=== PATIENT | male | born 1975 | race Caucasian/White ===

== ENCOUNTER 2021-07-09 15:23 | Outpatient (CLI) | payer OTHER, SELFPAY ==
--- NOTE | 2021-07-09 15:36 | XRR_ITS ---
PROCEDURE INFORMATION: Exam: XR Left Hip Exam date and time: 07/09/2021 3:36 PM Age: 45 years old Clinical indication: Hip pain; Left hip; Patient HX: PT in lt hip unknown injury. 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 Views: 2 or 3 views hip with pelvis when performed. COMPARISON: No relevant prior studies available. FINDINGS: Bones/joints: Unremarkable. No acute fracture. Soft tissues: Unremarkable. XR/XR hip LT 2-3V wo/w pel* [id number] IMPRESSION: No acute findings.
[2021-07-09 16:28] LABS: Alanine Aminotransferase 18 U/L (0-41); Albumin Level 4.6 g/dL (3.5-5.2); Alkaline Phosphatase 90 IU/L (40-130); Anion Gap 12.4 (5-19); Aspartate Amino Transferase 12 U/L (0-40); Blood Urea Nitrogen 18 mg/dL (6-20); Calcium 9.6 mg/dL (8.5-10.5); Carbon Dioxide 27 mmol/L (22-29); Chloride 102 mmol/L (98-107); Chol HDL Ratio 5.43 mg/dL (1.0-5.00); Cholesterol 228 mg/dL (0-200); Globulin 2.7 g/dL (1.3-4.6); Glomerular Filtration Rate 103.6 mL/min (90-130); Glucose 97 mg/dL (65-115); HDL Cholesterol 42 mg/dL (60-100); LDL Cholesterol Calculated 154 mg/dL (50-129); LDL HDL Ratio 3.67 RATIO (0.00-3.22); Osmolality Calculated 286 mOsm/kg (285-295); Potassium 4.4 mmol/L (3.5-5.1); Sodium 137 mmol/L (136-145); Total Bilirubin 0.8 mg/dL (0.15-1.2); Total Protein 7.3 g/dL (6.6-8.7); Triglycerides 162 mg/dL (0-150)
== END 2021-07-09 15:24 | disposition home or self-care (01) ==
LOC: RAD 15:31
PROVIDERS: PCP Nurse Practitioner Family; Visit Provider Nurse Practitioner Family
DX: M25.552 Pain in left hip (principal); I10 Essential (primary) hypertension; E78.5 Hyperlipidemia, unspecified
CPT/HCPCS: 36415; 73502; 80053; 80061

== ENCOUNTER 2021-07-14 15:04 | Outpatient (CLI) | payer OTHER, SELFPAY ==
--- NOTE | 2021-07-14 15:11 | XR_ITS ---
WS: [id number] Exam: XR lumbar spine 2-3V* [id number] Date/Time of Exam: 07/14/2021 3:25 PM Reason For Exam: M54.5 - Low back pain No fracture or dislocation. Disc spaces are preserved. Mild spondylosis. Posterior elements are intac t. Numerous faceted calcified densities superimpose the left abdomen. Partial sacralization of L5. XR/XR lumbar spine 2-3V* [id number] IMPRESSION: 1. No fracture or dislocation. Minimal degenerative change. 2. Numerous faceted calcifications visualized over the left abdomen. Significan ce is undetermined. These could be renal stones or material within the GI tract .
== END 2021-07-14 15:05 | disposition home or self-care (01) ==
PROVIDERS: PCP Nurse Practitioner Family; Visit Provider Nurse Practitioner Family
DX: M54.5 Low back pain (principal)
CPT/HCPCS: 72100

== ENCOUNTER 2021-07-14 20:43 | Emergency (ER) | payer OTHER, SELFPAY ==
[2021-07-14 20:53] VITALS: PULSE 129; RESP 24; TEMP 36.7; O2SAT 99; BMI 28.8
--- NOTE | 2021-07-14 20:58 | XRR_ITS ---
PROCEDURE INFORMATION: Exam: XR Chest Exam date and time: 07/14/2021 8:58 PM Age: 45 years old Clinical indication: Dyspnea TECHNIQUE: Imaging protocol: XR of the chest. Views: 1 view. COMPARISON: No relevant prior studies available. FINDINGS: Lungs: Lungs are clear. Pleural spaces: There is no pleural effusion or pneumothorax. Heart/Mediastinum: Cardiomediastinal contours are unremarkable. Bones/joints: Bones are unremarkable. XR/XR chest 1V portable [id number] IMPRESSION: No acute findings.
--- NOTE | 2021-07-14 20:59 | ECG_ITS ---
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 Measurements Intervals [place] Rate: 121 P: 62 CO: 159 QRS: 56 QRSD: 111 T: 51 QT: 344 QTc: 490 Interpretive Statements SINUS TACHYCARDIA INCOMPLETE RIGHT BUNDLE BRANCH BLOCK [90+ ms QRS DURATION, TERMINAL R IN V1/V2, 40+ ms S IN I/aVL/V4/V5/V6] ABNORMAL RHYTHM ECG No previous ECG available for comparison Electronically Signed On 07-14-2021 22:07:12 CDT by Mayo Lacy M.D. [id number]
[2021-07-14] MEDS: sodium chloride 0.9% 500 ML IV (21:15)
[2021-07-14] MEDS: sodium chloride 0.9% 1,000 ML 999 ML IV (21:15)
[2021-07-14] MEDS: metoprolol tartrate 1 mg/1 mL SDV 5 mL 5 MG IVP (21:15)
[2021-07-14 21:29] LABS: Basophils % 0.4 %; Eosinophils # 0.1 10^3/uL (0.0-0.8); Eosinophils % 0.6 %; Hematocrit 45.1 % (42.0-52.0); Hemoglobin 15.7 g/dL (11.7-16.6); Lymphocytes # 1.5 10^3/uL (0.8-4.8); Lymphocytes % 15.3 %; Mean Corpuscular HGB Conc 34.8 g/dL (30.0-36.0); Mean Corpuscular Volume 86.1 fl (80-94); Mean Platelet Volume 12.1 fL (7.4-10.4); Monocytes # 0.9 10^3/uL (0.2-0.9); Monocytes % 8.7 %; Neutrophils # 7.53 10^3/uL (1.8-7.7); Neutrophils % 74.7 %; Nucleated Red Blood Cells % 0 %; Platelet Count 208 10^3/cmm (130-400); Red Blood Count 5.24 10^6/uL (4.1-5.3); Red Cell Distribution Width 11.7 % (12.1-15.1); White Blood Count 10.1 10^3/uL (4.0-10.0)
[2021-07-14 22:00] LABS: D Dimer <= 0.27 ug/mIFEU (0-0.59)
--- NOTE | 2021-07-14 22:02 | ED_ITS ---
HPI - General Adult General: Chief complaint: Chest Pain Stated complaint: Heart palpatations Time Seen by Provider: 07/14/21 21:06 History of Present Illness: HPI narrative: Patient is a 45-year-old male with a history of tachycardia who was previously on atenolol currently not on any medication who presents the emergency room for concerns of palpitation which started 2 hours ago. Per patient's daughter, patient was concerned that he may have hyperkalemia given this tachycardia was told to go to the emergency room for evaluation. Patient had mild chest pain shortness of breath associated with the palpitation. Denies any lightheadedness, abdominal complaints complaints dehydration, nausea/vomiting, diarrhea, melena hematochezia. Patient has no complaints at this time. No family history of cardiac disease. Denies any pleuritic chest pain, denies any recent alcohol withdrawal history, any sympathomimetic use, smoking, or family history of CAD or sudden cardiac . Onset: 3 hrs ago Duration:3 hrs Location:home Severity:moderate Review of Systems Narrative: Constitutional: No fever, no chills. HEENT: No vision changes CV: +mild chest pain/SOB, +palpitations PULM: no cough, no dyspnea. GI: No abdominal pain, no N/V/D. : No dysuria MSKEL: No muscle pain SKIN: No new rashes, no lesions. NEURO: No headache, no focal weakness. HEME: No visible bruises PSYCH: Normal mood [facility] ED PFSH: Medical History Anxiety HTN (hypertension) Family History Father Hypertension Physical Exam Narrative: EXAM NARRATIVE: Head: Atraumatic Eyes: PERRL, conjunctiva without injection ENT: Mucous membrane moist NECK: Supple, ROM intact LUNGS: LCTAB, no crackles/rhonchi CV: Sinus tachycardia, 2+ radial pulses b/l ABDOMEN: Soft, nontender in all quadrants EXTREMITY: Normal ROM SKIN: No rash or erythema NEURO: Awake and alert, no focal motor deficits PSYCH: Normal mood and affect Course Vital Signs: Vital signs: Vital Signs Temperature 98.1 F 07/14/21 20:53 Pulse Rate 83 07/15/21 00:29 Respiratory Rate 18 07/15/21 00:29 Blood Pressure 150/96 07/15/21 00:29 Pulse Oximetry 97 07/15/21 00:29 MDM - General Adult MDM Narrative: Medical decision making narrative: 35-year-old male who presents the emergency room for acute onset of palpitation with some chest pain shortness of breath. On exam, patient is noted be tachycardic to the 110s to 120s. Rest of exam within normal limit. Given findings, will work-up for ACS. Low suspicion for PE but will evaluate given tachycardia. EKG showing regular sinus tachycardia at HT of [129]. Normal axis. No ST elevations/depressions to suggest coronary occlusion. Normal CT, QRS, QT intervals. On reassessment, he received 1.5 L of fluid and 5 mg of metoprolol. Patient has been persistently with heart rate in the 80s. There is NO lethal dysrhythmia on the secured entrance monitor. Troponin X2 within normal limit. D dimer wnl. I have given patient follow-up with ski edge painter outpatient however patient declined this time citing desire to follow-up with his primary care provider. Again there is no family member with list of lethal dysrhythmia do not suspect that the patient will have any significant problem once leaving the hospital today. I have instructed patient that should he have any palpitation or having any similar symptoms to follow-up with a ski edge painter for Holter monitor. Patient verbalized understanding and agrees to do so. Doubt ACS/PE or other emergent causes of chest pain. No suspicion for aortic dissection given no widened mediastinum, 2+ upper extremity pulses, or tearing pain. No suspicion for PE given no pleuritic chest pain, recent immobilization or surgery hemoptysis, or other VTE risk factors. EKG is non-ischemic. XR normal. Disposition: Discharge. Patient counseled regarding diagnostic impression, treatment plan. Patient given ED strict return precautions to return for continuation, worsening, or development of new symptoms. Instructed to f/u w/ PCP regarding symptoms today. Patient verbalized understanding. Lab Data: Labs: Lab Results 07/14/21 07/14/21 07/14/21 21:23 21:23 21:23 WBC 10.1 10^3/uL H 10 ^3/uL (4.0-10.0) RBC 5.24 10^6/uL 10^6 /uL (4.1-5.3) Hgb 15.7 g/dL g/dL (11.7-16.6) Hct 45.1 % % (42.0-52.0) MCV 86.1 fl fl (80-94) MCH 30.0 pg pg (28.0-34.0) MCHC 34.8 g/dL g/dL (30.0-36.0) RDW 11.7 % L % (12.1-15.1) Plt Count 208 10^3/cmm 10^3 /cmm (130-400) MPV 12.1 fL H fL (7.4-10.4) Neut % (Auto) 74.7 % % Lymph % (Auto) 15.3 % % Blount % (Auto) 8.7 % % Eos % (Auto) 0.6 % % Baso % (Auto) 0.4 % % Neut # (Auto) 7.53 10^3/uL 10^3 /uL (1.8-7.7) Lymph # (Auto) 1.5 10^3/uL 10^3/ uL (0.8-4.8) Blount # (Auto) 0.9 10^3/uL 10^3/ uL (0.2-0.9) Eos # (Auto) 0.1 10^3/uL 10^3/ uL (0.0-0.8) Baso # (Auto) 0.0 10^3/uL 10^3/ uL (0.0-0.1) Nucleated RBC % (a uto) 0 % % Nucleated RBCs # 0.0 /100WBC /100W BC D-Dimer Sodium 135 mmol/L L mmol /L (136-145) Potassium 3.9 mmol/L mmol/L (3.5-5.1) Chloride 101 mmol/L mmol/L (98-107) Carbon Dioxide 21 mmol/L L mmol/ L (22-29) Anion Gap 16.9 (5-19) BUN 21 mg/dL H mg/dL (6-20) Creatinine 0.8 mg/dL mg/dL (0.7-1.2) GFR Calculation 103.6 mL/min mL/m in (90-130) Glucose 105 mg/dL mg/dL (65-115) Calculated Osmolal ity 283 mOsm/kg L mOs m/kg (285-295) Calcium 9.5 mg/dL mg/dL (8.5-10.5) Troponin T Baselin e 6 ng/L ng/L (0-15) Troponin T 120 Min [place] Delta Troponin T NT-Pro-B Natriuret Pep 20 pg/mL pg/mL (0-125) TSH 3.56 uIU/mL uIU/m L (0.27-4.20) Free T4 1.45 ng/dL ng/dL (0.82-1.77) 07/14/21 07/14/21 21:23 23:25 WBC RBC Hgb Hct MCV MCH MCHC RDW Plt Count MPV Neut % (Auto) Lymph % (Auto) Blount % (Auto) Eos % (Auto) Baso % (Auto) Neut # (Auto) Lymph # (Auto) Blount # (Auto) Eos # (Auto) Baso # (Auto) Nucleated RBC % (a uto) Nucleated RBCs # D-Dimer <= 0.27 ug/mIFEU ug/mIFEU (0-0.59) Sodium Potassium Chloride Carbon Dioxide Anion Gap BUN Creatinine GFR Calculation Glucose Calculated Osmolal ity Calcium Troponin T Baselin e Troponin T 120 Min [place] 6.00 ng/L ng/L (0-15) Delta Troponin T 0 ABS# ABS# (0-10) NT-Pro-B Natriuret Pep TSH Free T4 Imaging Data^: Other Imaging: Radiologist's impression: [address] [id number] ReportSigned Patient: Zachery Soliman #: [id number]: 1975Acct#:OV [id number]/Sex: 45 / MADM Date: 07/14/21Loc: ERRoom/Bed:Attending Dr: Ordering Provider/Ordering MD: Terry Mcclelland MD Date of Service: 07/14/21 Procedure(s): XR chest 1V portable [id number] Accession Number(s): [id number] Report Number: [id number] PROCEDURE INFORMATION: Exam: XR Chest Exam date and time: 07/14/2021 8:58 PM Age: 45 years old Clinical indication: Dyspnea TECHNIQUE: Imaging protocol: XR of the chest. Views: 1 view. COMPARISON: No relevant prior studies available. FINDINGS: Lungs: Lungs are clear. Pleural spaces: There is no pleural effusion or pneumothorax. Heart/Mediastinum: Cardiomediastinal contours are unremarkable. Bones/joints: Bones are unremarkable. XR/XR chest 1V portable [id number] IMPRESSION: No acute findings. Dictated By:Bhavin Dimasigned By:Bhavin Dimas Date/Time:07/14/21 3882 Discharge Plan Discharge Patient Disposition: Home Clinical Impression: Heart palpitations Condition: Stable Prescriptions: No Action lisinopril 10 mg tablet 10 mg PO DAILY Qty: 30 RF: 2 tramadol 50 mg tablet 50 mg PO TID PRN (Reason: pain) 7 Days Qty: 21 RF: 0 paroxetine HCl [Paxil] 40 mg tablet 40 mg PO DAILY Qty: 90 RF: 1 Discharge Orders: Discharge ED (Routine); Ordered 07/15/21 Ordered By: Terry Mcclelland Referrals: Nory Sherman FNP [Primary Care Provider] - Discharge Diet: Advance as tolerated Discharge Activity: Resume usual activity Patient Instructions: Palpitations (ED) Activity Restrictions/Additional Instructions: Follow-up with your primary care provider for evaluation of your medicines. Back to the emergency room room if you feel any chest pain, shortness breath, passing out, or any new concerning planes. Coding Level of Care Code ED Hydrogen Plant Operations Manager for Niya Gutierrez
[2021-07-14 22:06] LABS: Troponin(5th) Baseline 6 ng/L (0-15)
[2021-07-14 22:17] LABS: Anion Gap 16.9 (5-19); Blood Urea Nitrogen 21 mg/dL (6-20); Calcium 9.5 mg/dL (8.5-10.5); Carbon Dioxide 21 mmol/L (22-29); Chloride 101 mmol/L (98-107); Free T4 Free Thyroxine 1.45 ng/dL (0.82-1.77); Glomerular Filtration Rate 103.6 mL/min (90-130); Glucose 105 mg/dL (65-115); NT Pro B Type Natriuretic Pept 20 pg/mL (0-125); Osmolality Calculated 283 mOsm/kg (285-295); Potassium 3.9 mmol/L (3.5-5.1); Sodium 135 mmol/L (136-145); Thyroid Stimulating Hormone 3.56 uIU/mL (0.27-4.20)
--- NOTE | 2021-07-14 22:59 | ECG_ITS ---
[facility] Test Date: 2021-07-14 Pat Name: Zachery Soliman Department: Room: Gender: Male Branch Chief: : 1975 Requested By: Terry Mcclelland Order Number: [id number] Castro MD: Mayo Lacy M.D. Measurements Intervals [place] Rate: 129 P: 58 DC: 148 QRS: 59 QRSD: 113 T: 48 QT: 338 QTc: 496 Interpretive Statements SINUS TACHYCARDIA INCOMPLETE RIGHT BUNDLE BRANCH BLOCK [90+ ms QRS DURATION, TERMINAL R IN V1/V2, 40+ ms S IN I/aVL/V4/V5/V6] ABNORMAL RHYTHM ECG Compared to ECG 07/14/2021 20:49:58 No significant changes Electronically Signed On 07-14-2021 22:20:36 CDT by Mayo Lacy M.D. [id number]
[2021-07-14 23:17] VITALS: BP 130/78; PULSE 82; RESP 16; O2SAT 97
[2021-07-14 23:53] VITALS: BP 130/78; PULSE 77; RESP 20; O2SAT 97
[2021-07-15 00:03] LABS: Troponin 5 2HR Delta 0 ABS# (0-10)
[2021-07-15 00:29] VITALS: BP 150/96; PULSE 83; RESP 18; O2SAT 97
--- NOTE | 2021-07-16 10:17 | DCPLANNER ---
principal product manager had message to schedule a follow up appointment for patient with Heart Care. principal product manager read physicians note, and it stated that patient declined referral at this time. principal product manager called patient to confirm if patient wanted a referral to heart care, patient stated that he wanted to speak with his pcp before he was referred to heart care.
== END 2021-07-15 00:31 | disposition home or self-care (01) ==
PROVIDERS: Emergency Provider Emergency Medicine; PCP Nurse Practitioner Family
DX: R00.2 Palpitations (principal); I10 Essential (primary) hypertension
CPT/HCPCS: 71045; 80048; 83880; 84439; 84443; 84484; 85025; 85378; 93005; 96361; 96374; 99283; J3490; J7030; J7040

== ENCOUNTER 2021-07-22 14:32 | Outpatient (CLI) | payer OTHER, SELFPAY ==
--- NOTE | 2021-07-22 15:42 | MR_ITS ---
WS: [id number] MRI of the lumbar spine, 07/22/2021 Clinical Data: M54.5 - Low back pain Comparison: Lumbar spine, 07/14/2021. Findings: Disc heights are normal. There are no compression fractures. The spinal cord ends at the T12-L1 level . No subluxation is present. The transverse processes and SI joints are unremarkable. L1-L2: No canal stenosis, disc bulge or foraminal narrowing is seen. L2-L3: No canal stenosis, disc bulge or foraminal narrowing is seen. L3-L4: No canal stenosis, disc bulge or foraminal narrowing is seen. L4-L5: There is a small left disc protrusion causing mild left canal stenosis. L5-S1: No canal stenosis, disc bulge or foraminal narrowing is seen. MR/MR lumbar spine wo con* [id number] Impression: Small left L4-L5 disc protrusion.
== END 2021-07-22 14:33 | disposition home or self-care (01) ==
LOC: RADSHAW 14:38
PROVIDERS: PCP Nurse Practitioner Family; Visit Provider Nurse Practitioner Family
DX: M51.26 Other intervertebral disc displacement, lumbar region (principal)
CPT/HCPCS: 72148

== ENCOUNTER → 2021-07-29 11:08 | Outpatient (BNVA) | payer OTHER, SELFPAY | PROVIDERS: PCP Nurse Practitioner Family; Referring Provider Nurse Practitioner Family; Visit Provider Physician Assistant | DX: M47.896 Other spondylosis, lumbar region (principal); M54.50 Low back pain, unspecified | CPT/HCPCS: 72120 ==

== ENCOUNTER → 2021-08-05 08:50 | Outpatient (BNVA) | payer OTHER, SELFPAY | PROVIDERS: PCP Nurse Practitioner Family; Referring Provider Physician Assistant; Visit Provider Anesthesiology Pain Medicine | DX: M54.16 Radiculopathy, lumbar region (principal); M79.605 Pain in left leg; I10 Essential (primary) hypertension; Z79.891 Long term (current) use of opiate analgesic; Z79.899 Other long term (current) drug therapy | CPT/HCPCS: 99204 ==

== ENCOUNTER → 2021-08-06 12:51 | Outpatient (BNVA) | payer OTHER, SELFPAY | PROVIDERS: PCP Nurse Practitioner Family; Visit Provider Anesthesiology Pain Medicine | DX: M54.16 Radiculopathy, lumbar region (principal); Z79.891 Long term (current) use of opiate analgesic | CPT/HCPCS: 64483; 64484; J1100; J3490 ==

== ENCOUNTER → 2021-08-20 14:12 | Outpatient (BNVA) | payer OTHER, SELFPAY | PROVIDERS: PCP Nurse Practitioner Family; Visit Provider Anesthesiology Pain Medicine | DX: M54.16 Radiculopathy, lumbar region (principal); Z79.891 Long term (current) use of opiate analgesic | CPT/HCPCS: 64483; 64484; J1100; J3490 ==

== ENCOUNTER → 2021-11-03 00:01 | Outpatient (BNVA) | payer OTHER, SELFPAY | PROVIDERS: PCP Nurse Practitioner Family; Visit Provider Orthopaedic Surgery | DX: M48.061 Spinal stenosis, lumbar region without neurogenic claudication (principal); Z20.822 Contact with and (suspected) exposure to COVID-19 | CPT/HCPCS: 87635 ==

== ENCOUNTER 2021-11-24 05:48 | Day surgery (SDC) | payer OTHER, SELFPAY ==
[2021-11-21 08:10] VITALS: BMI 29.5
--- NOTE | 2021-11-21 08:18 | P.ANESASSM_ITS ---
Pre-Anesthetic Assessment Height/Weight: Height 1.83 m Weight 98.883 kg Operation Date: 11/24/21 07:00 Proposed Procedures p Lumbar Spine Decompression L4/5 L5/S1, poss L4/5 excision of herniated disc(Not Applicable) - Macho Arguelles, DO Familial anesthetic complications: None Social No alcohol and No tobacco Exam alert, oriented x 3, clear to auscultation bilaterally and regular rate & rhythm Airway Cervical ROM: within normal limits Mallampati: Class II Dentition: full Pulmonary None reported CV/HEM Hypertension and Palpitations (PVCs) GI Rosie fundoplication Anesthetic Plan ASA status: 2 Anesthesia: General Medications/Allergies Home Medications Medication Instructions Recorded Confirmed Last Taken Type paroxetine HCl 40 mg tablet (Paxil) 40 mg PO DAILY #90 tab 07/09/21 09/29/21 Unknown Rx lisinopril 5 mg tablet 5 mg PO DAILY #30 tab 08/25/21 09/29/21 Unknown Rx metoprolol succinate 50 mg 50 mg PO BID tab 08/25/21 09/29/21 Unknown History tablet,extended release 24 hr Allergies Allergy/AdvReac Type Severity Reaction Status Date / Time No Known Allergies Allergy Verified 09/29/21 10:41 [facility] Anesthesia Medical History Anxiety HTN (hypertension) Family History Father Hypertension Social History (Updated 09/29/21 @ 11:00 by Guanako Menendez LPN) Smoking and tobacco status: current every day smoker smokeless tobacco Smokeless tobacco user: chewing tobacco Alcohol intake: current Alcohol intake frequency: holidays/special occasions only Lives independently: Yes Household members: spouse History of recent travel: No Data Anesthesia Cardiac Studies: No Data to Display
[2021-11-21 09:27] LABS: Anion Gap 12.2 (5-19); Blood Urea Nitrogen 12 mg/dL (6-20); Calcium 8.6 mg/dL (8.5-10.5); Carbon Dioxide 26 mmol/L (22-29); Chloride 104 mmol/L (98-107); Glomerular Filtration Rate 79.8 mL/min (90-130); Glucose 103 mg/dL (65-115); Osmolality Calculated 286 mOsm/kg (285-295); Potassium 4.2 mmol/L (3.5-5.1); Sodium 138 mmol/L (136-145)
[2021-11-24] VITALS (7 sets, daily range): BP systolic 148–180; BP diastolic 78–120; PULSE 61–98; RESP 12–29; TEMP 36.1–36.6; O2SAT 93–100
--- NOTE | 2021-11-24 | XR_ITS ---
WS: [id number] XR lumbar spine 1V [id number] REASON FOR EXAM: spinal stenosis FINDINGS: Surgical device overlying left L5-S1 disc space. XR/XR lumbar spine 1V [id number] IMPRESSION: Lumbar spine localization during surgery.
--- NOTE | 2021-11-24 | SCC_ITS ---
Procedure done: 1. L4/5 Laminectomy with partial facetectomy and diskectomy 2. L5/S1 laminectomy with partial facetectomy 11.7 seconds of fluoroscopic guidance, for a cumulative dose of 5.11 mGy, was provided to Dr. Arguelles by the radiology department. C-arm images of the lumbar spine were saved for the patient's permanent record. [facility]
[2021-11-24] MEDS: sodium chloride 0.9% 1,000 ML 30 ML IV (06:29)
--- NOTE | 2021-11-24 06:51 | P.HP_ITS ---
Providers/Chief Complaint Primary Care Provider: GABRIEL Guevara Chief Complaint: Spinal Stenosis History of Present Illness Zachery Soliman is a 46 year old male Patient has had 2 rounds of injections and per patient they did not resolve pain at all.? Patient rates pain at 7/10 in clinic today. Pain radiates down left leg with numbness, tingling, cramping. Pain keeps patient up at night. Review of Systems Narrative: General ROS: negative for weight changes, fever ENT ROS: negative for nasal congestion, drainage or bleeding, sore throat, dysphagia or ear pain Eyes: PERRL Hematological and Lymphatic ROS: negative for swollen glands or abnormal bleeding Endocrine ROS: negative for polyuria/polydpsia or new changes in weight Respiratory ROS: negative for cough, shortness of breath, or wheezing Cardiovascular ROS: negative for chest pain or dyspnea on exertion Gastrointestinal ROS: negative for reflux, abdominal pain, change in bowel habits, or black or bloody stools Musculoskeletal ROS: negative for back pain, neck pain, or joint pain or swelling except for current problem Neurological ROS: negative for TIA or stoke symptoms Skin: no rashes Medications/Allergies Home Medications Medication Instructions Recorded Confirmed Last Taken Type paroxetine HCl 40 mg tablet (Paxil) 40 mg PO DAILY #90 tab 07/09/21 11/24/21 11/23/21 Rx lisinopril 5 mg tablet 5 mg PO DAILY #30 tab 08/25/21 11/24/21 11/23/21 Rx metoprolol succinate 50 mg 50 mg PO BID tab 08/25/21 11/24/21 11/24/21 History tablet,extended release 24 hr Allergies Allergy/AdvReac Type Severity Reaction Status Date / Time No Known Allergies Allergy Verified 11/24/21 06:08 PFSH Acute PFSH: Medical History Anxiety HTN (hypertension) Family History Father Hypertension Social History (Updated 09/29/21 @ 11:00 by Guanako Menendez LPN) Smoking and tobacco status: current every day smoker smokeless tobacco Smokeless tobacco user: chewing tobacco Alcohol intake: current Alcohol intake frequency: holidays/special occasions only Lives independently: Yes Household members: spouse History of recent travel: No Vitals/I&O/Wt Last Vital Signs Temp 97.8 F 11/24/21 06:16 Pulse 61 11/24/21 06:16 Resp 16 11/24/21 06:16 BP 180/120 11/24/21 06:16 Pulse Ox 100 11/24/21 06:16 Physical Exam Narrative: EXAM NARRATIVE: CONSTITUTIONAL: The patient is a normal appearing [] in no apparent distress. GENERAL: Patient in no acute distress. CARDIAC: Regular rate and rhythm. CHEST: Normal inspiratory effort, normal respiratory rate. ABDOMEN: Soft and nontender. SKIN: Clear, warm and intact. NEURO?PSYCH: The patient is alert and oriented to person, place and time. Sensorv /SILT Motor StrengthShoulder abduction C5 5/5Wrist extension C6 5/5Elbow extension C7 5/5Hand Cashier Or Checker Stock Clerk C8 5/5Finger abduction T15/5 Radial/ Ulnar/ Median n intact LowerSensory (SILT)Motor StrengthHin flexion L2/3Ant/inner thigh 5/5Hip adduction L2/3 5/5Knee extension L4 Lat thigh, 5/5Toe dorsiflexion L5 5/5Ankle dorsiflexion L5/ L71Qgctday flexion S1 5/5 DTRBleeps 2+Triceps 2+Brachioradialis 2+Patellar 2+Achilles 2+ MUSCULOSKELETAL: [] UPPEREXTREMITIES: The patient had full active ROM in fingers, wrist, elbow, and shoulder. The patient demonstrated ability to fully flex/ex tend/abduct/adduct fingers, make ok sign, cross 2nd/3rd digits, extend 1st digit fully.. Radial pulse 2+, CR<2 seconds. LOWER EXTREMITIES: Pt has full, active ROM of toes, ankle, knee, and hip. Dorsal is pedis/posterior tibialis pulses 2+, CR<2 seconds. SPINE: Skin warm, dry, intact. Data : 11/21/21 08:30 A&P Assessment and plan (1) Lumbar stenosis with neurogenic claudication: decompression with diskectomy L4/5 l5/S1 Status: Acute Attestations Medical Necessity Statement*: failed conservative tx Coding Level of Care Code Acute Negative Cleaner for [facility] Fw Diagnoses Lumbar stenosis with neurogenic claudication M48.062
--- NOTE | 2021-11-24 07:29 | P.ANESUD_ITS ---
Pre-Anesthetic Update Pre-Anesthetic Assessment: Date of Surgery/Procedure: 11/24/21 Preop Dorota gnosis: Lumbar Radiculopathy Proposed Procedure: Operation Date: 11/24/21 07:00 Proposed Procedures p Lumbar Spine Decompression L4/5 L5/S1, poss L4/5 excision of herniated disc(Not Applicable) - Macho Arguelles, DO Any changes to Pre-Anesthetic Assessment?: No Last Intake: Intake Last Liquid Date 11/23/21 Last Liquid Time 22:00 Last Solid Date 11/23/21 Last Solid Time 22:00 Vitals: Temperature 97.8 F 11/24/21 06:16 Temperature Source Temporal Artery S can 11/24/21 06:16 Pulse Rate 61 11/24/21 06:16 Respiratory Rate 16 11/24/21 06:16 Blood Pressure 180/120 11/24/21 06:16 Blood Pressure Lawanda n 140 11/24/21 06:16 Pulse Oximetry 100 11/24/21 06:16 Oxygen Delivery Me thod 11/24/21 06:16 Exam: Pre-Anes Outpt Exam: alert, oriented x 3, clear to auscultation bilaterally and regular rate & rhythm Cardiac Studies: No Data to Display
--- NOTE | 2021-11-24 08:44 | P.OP_ITS ---
Operative Report Date of procedure: November 24, 2021 Pre-op diagnosis: Preop Diagnosis Lumbar stenosis with neurogenic claudication Post-op diagnosis: same Procedure done: 1. L4/5 Laminectomy with partial facetectomy and diskectomy 2. L5/S1 laminectomy with partial facetectomy Surgeon: Macho Arguelles Fireworks Inspector: Ridge Ramírez Fireworks Inspector: The surgical training specialist, Ridge Ramírez, PAC was needed for his expertise under the microscope. He was important and necessary throughout the procedure to complete in a safe and timely manner. He assisted with patient positioning prepping and draping tissue retraction suctioning of the operative field protection of the dural sac and tissue closure Estimated blood loss (mL): 5 Procedure: Patient is brought to the operative suite. After undergoing anesthesia they are placed in the prone position. All areas of impingement are well padded. Patient is then prepped and draped in the normal sterile fashion. A skin incision is made over the L4/5 level. This is confirmed under c-arm guidance. A series of dilators are passed and the tubular retractor is docked on the L4 lamina. A bovie is used to clear the soft tissue off the lamina and the L 4/5 facet joint. A high speed parish is then used to perform the laminectomy and take down the medial aspect of the L 4/5 facet joint. A kerrison rongeure was then used to take down the remaining lamina and smooth the edge of the laminectomy up to the point where the ligamentum flavum attaches. Attention was then brought to the medial aspect of the facet joint. The remaining medial aspect of the superior and inferior aspect of the facet joint were taken down with the kerrison from the pedicle of L4 to L 5. The facet joint had significant hypertrophy. Attention was then brought to the Ligamentum Flavum. The ligament was taken down from the lamina of L4 to L5 and out medially to the remaining facet joint. The ligament was thick. The dura was then exposed. The dura was in good repair. L5 nerve was retracted and protected micropituitary was used to remove disk material. The L4 nerve was then traced with a curette out the L4/5 foramen and found to be adequately decompressed. The L5 nerve was traced with a curette around the L5 pedicle. The lateral recess was opened with a kerrison helping to further decompress the L5 nerve. Wound is then irrigated copiously with saline and surgiflo is used to stop any bleeding. The tubular retractor is removed and A skin incision is made over the L5/S1 level. This is confirmed under c-arm guidance. A series of dilators are passed and the tubular retractor is docked on the L5 lamina. A bovie is used to clear the soft tissue off the lamina and the L 5/S1 facet joint. A high speed parish is then used to perform the laminectomy and take down the medial aspect of the L 5/S1 facet joint. A kerrison rongeure was then used to take down the remaining lamina and smooth the edge of the laminectomy up to the point where the ligamentum flavum attaches. Attention was then brought to the medial aspect of the facet joint. The remaining medial aspect of the superior and inferior aspect of the facet joint were taken down with the kerrison from the pedicle of L5 to S1. The facet joint had significant hypertrophy. Attention was then brought to the Ligamentum Flavum. The ligament was taken down from the lamina of L5 to S1 and out medially to the remaining facet joint. The ligament was thick. The dura was then exposed. The dura was in good repair. The L5 nerve was then traced with a curette out the L5/S1 foramen and found to be adequately decompressed. The S1 nerve was traced with a curette around the S1 pedicle. The lateral recess was opened with a kerrison helping to further decompress the S1 nerve. Wound is then irrigated copiously with saline and surgiflo is used to stop any bleeding. The tubular retractor is removed and the wound is closed with vicryl and monocryl suture. Glue is then used to protect the wound. A sterile dressing is then placed. Patient was then placed in the supine position and transferred to the PACU in stable condition.
[2021-11-24] MEDS: HYDROcodone-acetaminophen 5-325 mg Tablet 1 TAB PO (09:27)
--- NOTE | 2021-11-24 14:12 | ANE.PACU2 ---
Inpatient post-anesthesia follow up: Airway intact: Yes Vital signs: Temperature 97.9 F Pulse Rate 78 Respiratory Rate 16 Blood Pressure 148/104 Pulse Oximetry 96 Oxygen Delivery Me thod Room Air Oxygen Flow Rate 2 Fraction of Inspir ed Oxygen Hydration adequate: Yes Nausea and vomiting: No Pain level: 3 Mental status: Baseline
== END 2021-11-24 09:45 | disposition home or self-care (01) ==
PROVIDERS: Anesthesiology; PCP Nurse Practitioner Family; Visit Provider Orthopaedic Surgery
PROC: (CPT 63005; principal; 2021-11-24 07:00)
DX: M48.062 Spinal stenosis, lumbar region with neurogenic claudication (principal); F41.9 Anxiety disorder, unspecified; I10 Essential (primary) hypertension; F17.220 Nicotine dependence, chewing tobacco, uncomplicated
CPT/HCPCS: 63047; 63048; 72020; 76000; 80048; J0690; J1100; J1885; J2370; J2405; J2704; J2710; J3010; J3490; J7030

== ENCOUNTER → 2021-12-31 14:53 | Outpatient (BNVA) | payer OTHER, SELFPAY | PROVIDERS: PCP Family Medicine; Visit Provider Family Medicine | DX: I10 Essential (primary) hypertension (principal); K21.9 Gastro-esophageal reflux disease without esophagitis; R10.13 Epigastric pain | CPT/HCPCS: 86677 ==